=== PATIENT | female | born 1960 | race Caucasian/White ===

== ENCOUNTER 2024-11-26 00:50 | Emergency (ER) | payer SELFPAY ==
[~2024-11-26] VITALS: Ht 170.2 cm; Wt 160.0 kg
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
[2024-11-26] MEDS: MAGNESIUM SULFATE 1GM/100ML 100 ML IV SCH (01:20)
[2024-11-26] MEDS: methylPREDNISolone SOD SUCC 125 MG/2 ML VL IV ONE (01:20)
[2024-11-26] MEDS: SODIUM CHLORIDE 0.9% 1,000 ML IVB ONE (01:21)
[2024-11-26] MEDS: IPRATROPIUM BROM 0.5 MG/2.5ML INH SOL NEB ONE (01:28)
[2024-11-26] MEDS: ALBUTEROL SULF 2.5 MG/0.5ML(0.5%) NEB SOLN NEB ONE (01:28)
--- NOTE | 2024-11-26 01:36 | DVH ---
CHEST RADIOGRAPH Indication: SOB Technique: 1 view Comparison: None FINDINGS: Lines and Tubes: None Lungs/Pleura: No focal consolidation, pleural effusion or pneumothorax. Cardiomediastinum: Unremarkable. Other: No acute osseous abnormality. IMPRESSION: 1. No acute cardiopulmonary abnormality.
[2024-11-26 01:37] LABS: Hematocrit 42.1 % (36.0-46.0); Hemoglobin 14.6 g/dL (12.2-16.2); Mean Corpuscular Hemoglobin 33.1 pg (28.0-32.0); Mean Corpuscular Volume 95.5 fL (80.0-100.0); Nucleated Red Blood Cells % 0.1 %
[2024-11-26 01:48] LABS: Alanine Aminotransferase 18 U/L (7-40); Albumin 4.5 g/dL (3.2-4.8); Alkaline Phosphatase 89 U/L (46-116); Anion Gap 13 (5-15); BUN/Creatinine Ratio 10.8 (10.0-20.0); Bilirubin, Total 0.4 mg/dL (0.2-1.0); Blood Urea Nitrogen 12 mg/dL (9-23); Calcium 9.7 mg/dL (8.7-10.4); Chloride 106 mmol/L (98-107); Magnesium 1.9 mg/dL (1.6-2.6); Sodium 138 mmol/L (136-145); Total Protein 7.1 g/dL (5.7-8.2)
[2024-11-26 01:49] LABS: Carbon Dioxide 19 mmol/L (20-31); Glucose 148 mg/dL (74-106); Potassium 3.5 mmol/L (3.5-5.1)
[2024-11-26 01:53] LABS: Base Excess -2.7 mmol/L (-2.0-3.0)
[2024-11-26 02:00] VITALS: BP 122/69; PULSE 94; RESP 25; TEMP 97.1; O2SAT 99
[2024-11-26] MEDS ORDERED: IPRIH INH (03:53)
[2024-11-26] MEDS ORDERED: PRED20TA2 PO (03:53)
[2024-11-26] MEDS ORDERED: ALBU108A5 IN (03:53)
--- NOTE | 2024-11-26 11:51 | ECG ---
[facility] Test Date: 2024-11-26 Test Time: 00:55:19 Pat Name: JOE CASTRO Department: Room: Gender: F Computer Technician: : [id number] Requested By: ADRIANO CLINE Order Number: [id number] Reading MD: Oz Jones Measurements Intervals [place] Rate: 115 P: 0 MA: 0 QRS: 78 QRSD: 72 T: 98 QT: 363 QTc: 502 Interpretive Statements Atrial fibrillation Borderline repolarization abnormality Prolonged QT interval Electronically Signed On 11-27-2024 16:42:25 PDT by Oz Jones Please click the below link to view image of tracing.
== END 2024-11-26 04:27 | disposition home or self-care (01) ==
LOC: EDBD 00:50 → ER 00:56
DX: T59.811A Toxic effect of smoke, accidental (unintentional), initial encounter (principal); J44.1 Chronic obstructive pulmonary disease with (acute) exacerbation; I48.91 Unspecified atrial fibrillation; Z79.899 Other long term (current) drug therapy; Y92.89 Other specified places as the place of occurrence of the external cause
CPT/HCPCS: 36415; 36600; 71045; 80053; 82805; 83735; 83880; 84484; 85025; 93005; 94640; 96365; 96366; 99285; J2919; J3475; J7030